=== PATIENT | female | born 1985 | race Caucasian/White ===

== ENCOUNTER → 2016-08-08 19:55 | Outpatient (CLI) | payer OTHER | END | disposition home or self-care (01) | LOC: D.SLEEP 19:55 | DX: G47.33 Obstructive sleep apnea (adult) (pediatric) (principal) ==

== ENCOUNTER 2018-08-25 12:28 | Emergency (ER) | payer OTHER ==
[~2018-08-25] VITALS: Ht 170.2 cm; Wt 63.6 kg
[2018-08-25 12:30] VITALS: Ht 170.2 cm; Wt 63.6 kg
[2018-08-25 12:59] LABS: APPEARANCE CLEAR (CLEAR); BILIRUBIN NEGATIVE (NEGATIVE); COLOR YELLOW (YELLOW); GLUCOSE NEGATIVE (NEGATIVE); KETONE NEGATIVE (NEGATIVE); NITRITE NEGATIVE (NEGATIVE); PROTEIN NEGATIVE (NEGATIVE); UROBILINOGEN NORMAL (NORMAL)
[2018-08-25 13:00] LABS: BACTERIA FEW /hpf (NONE SEEN); EPITHELIAL CELLS 0-5 /hpf (0-5); RED CELLS - URINE 0-5 /hpf (0-5); WHITE CELLS - URINE 0-5 /hpf (0-5)
[2018-08-25] MEDS ORDERED: XOFLUZA40 MG PO (17:54)
[2018-08-25 18:22] VITALS: BP 101/59
== END 2018-08-25 18:22 | disposition home or self-care (01) ==
LOC: D.ER 12:28
PROVIDERS: Emergency Medicine
DX: J11.1 Influenza due to unidentified influenza virus with other respiratory manifestations (principal); E86.0 Dehydration

== ENCOUNTER 2020-02-04 05:40 | Outpatient (CLI) | payer MEDICAID ==
[~2020-02-04] VITALS: Ht 170.2 cm; Wt 85.7 kg
[~2020-02-04 05:40] MED LIST: XOFLUZA40 MG PO
[2020-02-04 05:53] VITALS: BP 143/73; Ht 170.2 cm; Wt 85.7 kg
[2020-02-04 07:28] LABS: BILIRUBIN NEGATIVE (NEGATIVE); KETONE NEGATIVE (NEGATIVE); NITRITE NEGATIVE (NEGATIVE); UROBILINOGEN NORMAL (NORMAL)
[2020-02-04 07:37] LABS: HEMATOCRIT 35.2 % (36.0-48.0); HEMOGLOBIN 11.6 g/dL (12-16); MCH 29.4 pg (26.0-34.0); MCV 89.1 fL (80.0-100.0); MEAN PLATELET VOLUME 12.2 fL (7.4-10.4); RBC 3.95 10x6/uL (4.00-5.40); RDW 14.2 % (11.5-14.5); WBC 12.9 10x3/uL (4.8-10.8)
[2020-02-04 07:41] LABS: UDS - AMPHET NEGATIVE QUAL (NEGATIVE); UDS - BARB NEGATIVE QUAL (NEGATIVE); UDS - BENZO NEGATIVE QUAL (NEGATIVE); UDS - COCAINE NEGATIVE QUAL (NEGATIVE); UDS - OPIATE NEGATIVE QUAL (NEGATIVE); UDS - PCP NEGATIVE QUAL (NEGATIVE); UDS - THC NEGATIVE QUAL (NEGATIVE)
[2020-02-04 20:01] LABS: UDS - AMPHET NEGATIVE QUAL (NEGATIVE); UDS - BARB NEGATIVE QUAL (NEGATIVE); UDS - BENZO NEGATIVE QUAL (NEGATIVE); UDS - COCAINE NEGATIVE QUAL (NEGATIVE); UDS - OPIATE NEGATIVE QUAL (NEGATIVE); UDS - PCP NEGATIVE QUAL (NEGATIVE); UDS - THC NEGATIVE QUAL (NEGATIVE)
[2020-02-05 07:15] LABS: RAPID PLASMA REAGIN Non Reactive (Non Reactive)
== END 2020-02-04 19:37 | disposition home or self-care (01) ==
LOC: UNDOADMIN 05:40 → D.LD 05:40 → D.LDO 05:40 → D.LD 19:37 → EDSTATUS 02-06 09:31
PROVIDERS: ATTEND Obstetrics & Gynecology
DX: O61.0 Failed medical induction of labor (principal); Z3A.00 Weeks of gestation of pregnancy not specified; Z53.9 Procedure and treatment not carried out, unspecified reason

== ENCOUNTER 2020-02-07 09:49 | Outpatient (CLI) | payer MEDICAID ==
[2020-02-04 05:53] VITALS: BMI 29.6
== END 2020-02-07 10:00 | disposition home or self-care (01) ==
LOC: D.LDO 09:49
PROVIDERS: ATTEND Obstetrics & Gynecology
DX: O26.893 Other specified pregnancy related conditions, third trimester (principal); Z3A.39 39 weeks gestation of pregnancy

== ENCOUNTER 2020-02-09 07:23 | Inpatient (IN) | payer MEDICAID ==
[~2020-02-09] VITALS: Ht 170.2 cm; Wt 84.4 kg
[2020-02-09] MEDS ORDERED: PRENAVITE1 TAB PO (08:11)
[2020-02-09] MEDS ORDERED: TUMS X-STR300 MG PO (08:12)
[2020-02-09 08:50] VITALS: BP 123/74; Ht 170.2 cm; Wt 84.4 kg
--- NOTE | 2020-02-09 17:23 | MORECARE ---
CASE MANAGEMENT DISCHARGE SUMMARY PATIENT: BARBRA ELAINE UNIT: [id number] ADM DATE: 02/09/20 AGE: 34 : 83 SEX: F ROOM/BED: D.1275 AUTHOR: ROGERIO HORN PHYSICIAN: REFERRING PHYSICIAN: VERA TORRES MD DATE OF SERVICE: 02/09/20 Discharge Plan Patient Name: BARBRA ELAINE [facility] [facility] 1985 Planned Disposition: Home Anticipated Discharge Date: 02/09/20 Discharge Date: 02/09/2020 Expected LOS: 1 Initial Reviewer: [email or web address] Initial Review Date: 02/09/2020 Generated: 02/09/20 6:23 pm Patient Name: BARBRA ELAINE Page [id number] at 1723 All edits/amendments must be made on the electronic document DICTATION DATE: 02/09/201722 POT SANDER: FANNIE 02/09/201722 RPT#: [id number] DC DATE:02/09/20 STATUS: DIS IN [facility] [address] [place] [address] END OF REPORT
== END 2020-02-09 10:11 | disposition home or self-care (01) | DRG 951 ==
LOC: D.LD 07:23
PROVIDERS: ADMIT Obstetrics & Gynecology; ATTEND Obstetrics & Gynecology
DX: Z34.93 Encounter for supervision of normal pregnancy, unspecified, third trimester (principal); Z3A.39 39 weeks gestation of pregnancy

== ENCOUNTER 2020-02-11 05:52 | Inpatient (IN) | payer MEDICAID ==
[~2020-02-11] VITALS: Ht 170.2 cm; Wt 85.7 kg
[~2020-02-11 05:52] MED LIST changes: +PRENAVITE1 TAB PO; +TUMS X-STR300 MG PO
[2020-02-11 06:26] VITALS: BP 126/72; Ht 170.2 cm; Wt 85.7 kg
[2020-02-11 07:50] LABS: HEMATOCRIT 37.2 % (36.0-48.0); HEMOGLOBIN 12.2 g/dL (12-16); MCH 29.1 pg (26.0-34.0); MCHC 32.8 g/dL (31.0-37.0); MCV 88.8 fL (80.0-100.0); MEAN PLATELET VOLUME 11.5 fL (7.4-10.4); RBC 4.19 10x6/uL (4.00-5.40); RDW 14.3 % (11.5-14.5); WBC 13.4 10x3/uL (4.8-10.8)
[2020-02-11 07:58] LABS: UDS - AMPHET NEGATIVE QUAL (NEGATIVE); UDS - BARB NEGATIVE QUAL (NEGATIVE); UDS - BENZO NEGATIVE QUAL (NEGATIVE); UDS - COCAINE NEGATIVE QUAL (NEGATIVE); UDS - OPIATE NEGATIVE QUAL (NEGATIVE); UDS - PCP NEGATIVE QUAL (NEGATIVE); UDS - THC NEGATIVE QUAL (NEGATIVE)
[2020-02-11 16:00] VITALS: BP 110/74
--- NOTE | 2020-02-11 16:00 | NUR ---
RECEIVED PT FROM PACU FOLLOWING . IV OF LR WITH PITOCIN INFUSING TO MIDLINE IV IN RIGHT UPPER ARM. IV PLACED TO IVP INFUSING AT 125CC/HR. PT GROGGY, BUT AWAKE AND ORIENTED X3. QUACH CATHETER DRAINING LIGHT YELLOW URINE TO GRAVITY. FUNDUS FIRM 2 BELOW THE UMBILICUS. LOCHIA SMALL/RUBRA. MALE VISITOR AT BEDSIDE. NO C/O PAIN AT THIS TIME.
[2020-02-11 16:15] VITALS: BP 146/75
[2020-02-11 16:30] VITALS: BP 130/80
[2020-02-11 16:45] VITALS: BP 144/77
--- NOTE | 2020-02-11 16:55 | NUR ---
VISION IMPAIRED TEACHER SET UP AND INFUSING PER ORDERS. PT INSTRUCTED ON USE. STATES UNDERSTANDING.
[2020-02-11 17:00] VITALS: BP 115/90
--- NOTE | 2020-02-11 17:28 | NUR ---
PT INSTRUCTED ON INCENTIVE SPIROMETER. PT SUCCESSFULLY USED SPIROMETER, RAISING GASKET TO 2000 X3 BREATHS. INSTRUCTED TO USE SPIROMETER 2X PER HOUR FOR 3-5 BREATHS EACH TIME. STATES UNDERSTANDING.
--- NOTE | 2020-02-11 18:05 | NUR ---
SYLVIA CARE DONE. FUNDUS REMAINS FIRM 2 BELOW THE UMBILICUS. FLOW IS SCANT/RUBRA. PT STATES LITTLE RELIEF FROM PAIRING MACHINE OPERATOR AT THIS TIME. ENCOURAGED TO CONTINUE TO USE PAIRING MACHINE OPERATOR OFTEN NEEDED. PT USING INCENTIVE SPIROMETER INSTRUCTED. NO OTHER NEEDS OR CONCERNS VOICED AT THIS TIME. MALE VISITOR REMAINS AT BEDSIDE WITH IN ARMS.
--- NOTE | 2020-02-11 19:15 | NUR ---
REPORT GIVEN BY DEWAYNE
--- NOTE | 2020-02-11 20:30 | NUR ---
PT ASSESSMENT COMPLETED. SKIN IS WARM AND DRY. INCISION DRESSING DRY AND INTACT WITH NO DRAINAGE NOTED. SHE HAS A LOW TRANSVERSE INCISION. LOCHIA IS MEDIUM. FUNDUS IS FIRM. PT HAS A DILAUDID MEDICAL PSYCHOTHERAPIST PUMP. SHE HAS TO BE REMINDED TO PUSH THE GREEN BUTTON. SHE IS DOZING WELL BUT STILL C/O PAIN RATED AN 8. SHE ALSO GETS TORADOL Q6H PRN. HEART SOUNDS NORMAL. LUNGS CLEAR AND BOWEL SOUNDS NOT HEARD AT THIS TIME. PT C/O BEING HUNGRY BUT UNDERSTANDS SHE CANNOT EAT UNTIL THE MORNING. SHE HAS A QUACH CATHETER THAT IS DRAINING YELLOW URINE. SHE HAS AN IV IN HER RIGHT ARM. THE SITE LOOKS GOOD WITH NO REDNESS OR PAIN. SHE HAS AN ICE PACK TO HER INCISION NOW. SHE DOES HER IS WELL. SHE UNDERSTANDS THAT SHE IS TO DO THIS 10X AN HOUR WHEN SHE IS AWAKE.
--- NOTE | 2020-02-11 21:00 | NUR ---
PT ASKED FOR CHICKEN BROTH. THIS WAS DELIVERED TO HER.
--- NOTE | 2020-02-11 21:45 | NUR ---
IV TORADOL GIVEN PER PT REQUEST.
--- NOTE | 2020-02-11 22:41 | NUR ---
PT IS RESTING WITH HER EYES CLOSED. RESPIRATIONS EVEN AND UNLABORED.
[2020-02-12] VITALS: BP 113/68
--- NOTE | 2020-02-12 | NUR ---
PT STATES SHE IS HUNGRY. CHICKEN BROTH AND JELLO SERVED TO HER. SHE HAS NO C/O AT THIS TIME
--- NOTE | 2020-02-12 00:15 | NUR ---
MOM IS LAYING IN BED EATING HER BROTH AND JELLO AND SNUGGLNG WITH THE BABY. I TALKED WITH HER ABOUT NOT FALLING TO SLEEP WITH THE BABY IN BED WITH HER. SHE STATES SHE'LL NEVER DO THAT. EXPLAINED THE THINGS THAT COULD HAPPEN TO THE BABY IF SHE DID THIS. SHE VERBALIZED UNDERSTANDING
--- NOTE | 2020-02-12 02:33 | NUR ---
WENT IN FOR ROUNDS TO CHECK ON THE MOM. SHE IS SLEEPING AND THE BABY IS IN BED WITH HER. I PUT HIM BACK INTO THE CRIB AND HE STARTED SCREAMING. I CHECKED HIS DIAPER AND IT WAS DRY. MOM SAID HE ATE 20 ML ABOUT 0015. THE NURSERY NURSE SAID THAT HE COULD COME TO THE NURSERY TO STAY A WHILE. THE BABY LOBITO IS IN THE ROOM SLEEPING AND HE DID NOT WAKE UP AT ALL WHILE ALL THIS WAS GOING ON. SOON I TOOK THE BABY, THE MOM WAS ASLEEP AGAIN.
[2020-02-12 04:00] VITALS: BP 108/64
--- NOTE | 2020-02-12 05:00 | NUR ---
PT REQUESTED TORADOL. 30 MG IV GIVEN.
--- NOTE | 2020-02-12 05:14 | NUR ---
VS TAKEN. PT IS AWAKE FOR NOW. QUACH EMPTIED AND DOCUMMENTED. IV PUMP CLEARED. DIRTY PADS UNDERNEATH PT WERE CHANGED WELL HER PADS. HER LOCHIA IS SMALL. PT IS RESTING QUIETLY WITH HER EYES CLOSED. BABY HAS BEEN IN THE NURSERY SINCE 13
--- NOTE | 2020-02-12 05:15 | NUR ---
SAMPLE WASHER WENT IN TO GET BLOOD FROM PT PER DR. KAUFMAN. PT WAS STUCK TWICE. SHE AND HER BABY DADDY WERE YELLING AND CUSSING AT THE SAMPLE WASHER AND THE PT WAS CRYING LOUDLY. NURSE WENT IN TO TRY TO DRAW LAB FROM PT MIDLINE IV. THE MIDLINE FLUSHED WELL BUT WOULD NOT DRAW. DR. TORRES WAS NOTIFIED BY CHARGE NURSE, PAUL, AND THE LAB WORK WAS CANCELLED.
--- NOTE | 2020-02-12 05:28 | NUR ---
PT IS HAVING HER BLOOD DRAWN NOW BY [facility].
[2020-02-12 06:11] LABS: RAPID PLASMA REAGIN Non Reactive (Non Reactive)
--- NOTE | 2020-02-12 06:27 | NUR ---
PT AND BABY LOBITO HAVE THE BABY IN THE ROOM FOR THE FIRST TIME SINCE 13. THEY ARE QUIET AND WITHOUT C/O AT THIS TIME.
--- NOTE | 2020-02-12 07:00 | NUR ---
REPORT RECEIVED FROM DOLLY ORTEGA.
--- NOTE | 2020-02-12 07:55 | NUR ---
DR. TORRES HERE FOR ROUNDS. ORDERS RECEIVED.
[2020-02-12 08:15] VITALS: BP 113/69
--- NOTE | 2020-02-12 08:15 | NUR ---
TO ROOM FOR ASSESSMENT. ASSESSMENT COMPLETED AND VS TAKEN. SEE FLOWSHEET. IV OF LR WITH PITOCIN INFUSING VIA IVP AT 125CC/HR WITH ACCOUNTS RECEIVABLE COORDINATOR INFUSING PRN. PT AWAKE, ALERT; FUNDUS FIRM MIDLINE 2 BELOW THE UMBILICUS. INCISION IS CDI WITH JUAN CARLOS. DRESSING REMOVED BY DR. TORRES DURING ROUNDS. QUACH CATHETER DRAINING CONCENTRATED URINE. PT STATES ACCOUNTS RECEIVABLE COORDINATOR AND TORADOL PROVIDING SOME PAIN RELIEF. INFORMED PT QUACH CATHETER WILL BE REMOVED THIS MORNING AND IV WILL BE SALINE LOCKED. PT STATES UNDERSTANDING. NO OTHER NEEDS OR CONCERNS VOICED AT THIS TIME.
--- NOTE | 2020-02-12 08:30 | NUR ---
QUACH CATHETE D/C'D. 425CC EMPTIED FROM BAG. MIDLINE IV SALINE LOCKED. PO PAIN MEDS GIVEN PER PT. REQUEST. PT ASSISTED TO BATHROOM. PT VOIDED 50CC. OFFERED SHOWER. PT STATES SHE WOULD LIKE TO GET BACK IN BED AND REST FOR A WHILE FIRST. PT ASSISTED BACK TO BED. NO OTHER NEEDS VOICED AT THIS TIME. MALE VISITOR AT BEDSIDE.
--- NOTE | 2020-02-12 09:55 | NUR ---
PT REQUESTS TO WALK OFF UNIT. MIDLINE IV D/C'D. CATHETER INTACT. PRESSURE APPLIED TO SITE X 3-4 MINUTES. NO BLEEDING NOTED. PRESSURE DRESSING APPLIED.
--- NOTE | 2020-02-12 10:15 | NUR ---
PT WALKING OFF UNIT.
--- NOTE | 2020-02-12 10:30 | NUR ---
PT RETURNED TO UNIT. NO REPORTED DIZZINESS. AMBULATING WITHOUT DIFFICULTY. PT RETURNED TO ROOM.
[2020-02-12] MEDS ORDERED: HYDROCODON-ACE1 EA10 PO (11:31)
[2020-02-12] MEDS ORDERED: MOTRIN600 MG PO (11:33)
--- NOTE | 2020-02-12 11:40 | NUR ---
PT AMBULATED OFF UNIT TO VENDING MACHINES.
--- NOTE | 2020-02-12 11:50 | NUR ---
PT RETURNED TO UNIT.
--- NOTE | 2020-02-12 12:45 | NUR ---
PT SITTING UP IN BED. LUNCH SERVED. NO NEEDS OR CONCERNS VOICED AT THIS TIME.
--- NOTE | 2020-02-12 13:15 | NUR ---
PT UP AMBULATING OFF UNIT WITH .
[2020-02-12 13:30] VITALS: BP 121/73
--- NOTE | 2020-02-12 13:30 | NUR ---
PT RETURNED TO ROOM. REQUESTS PAIN MEDICATION. MEDS GIVEN. VS TAKEN. PT PASSING SMALL/MEDIUM CLOTS (SMALLER THAN AN EGG) WHEN UP TO VOID. FUNDUS REMAINS FIRM 2 BELOW THE UMBILICUS, MIDLINE. CONTINUE TO MONITOR. PT IN BED. NO OTHER REQUESTS OR NEEDS AT THIS TIME.
--- NOTE | 2020-02-12 15:30 | NUR ---
PT RESTING WITH EYES CLOSED IN BED. AT BEDSIDE. BABY AT BEDSIDE IN OPEN CRIB.
--- NOTE | 2020-02-12 16:30 | NUR ---
DISCUSSED WITH PATIENT DECISION TO REMAIN IN HOSPITAL OR DISCHARGE. PT STATES SHE WOULD LIKE TO THINK ABOUT IT. PT SITTING UP WITH BABY IN ARMS. AT BEDSIDE. NO OTHER NEEDS OR CONCERNS AT THIS TIME.
--- NOTE | 2020-02-12 17:20 | NUR ---
PT HAS DECIDED TO DISHCARGE HOME.
--- NOTE | 2020-02-12 17:58 | NUR ---
REVIEWED DISCHARGE INSTRUCTIONS WITH PATIENT. STATES UNDERSTANDING. PRESCRIPTIONS GIVEN. FOLLOW-UP APPOINTMENT GIVEN FOR 02/18/20 @ 0800. PT DISCHARGED HOME. WILL ROOM IN UNTIL BABY IS DISCHARGED.
== END 2020-02-12 18:10 | disposition home or self-care (01) | DRG 788 ==
LOC: D.WS 05:52 → D.LD 05:52 → D.WS 15:38
PROVIDERS: ADMIT Obstetrics & Gynecology; ATTEND Obstetrics & Gynecology
PROC: 05HB33Z Insertion of Infusion Device into Right Basilic Vein, Percutaneous Approach (ICD-10-PCS; 2020-02-11)
PROC: B54MZZA Ultrasonography of Right Upper Extremity Veins, Guidance (ICD-10-PCS; 2020-02-11)
PROC: 10D00Z1 Extraction of Products of Conception, Low, Open Approach (ICD-10-PCS; principal; 2020-02-11 13:30)
DX: O61.0 Failed medical induction of labor (principal); Z3A.40 40 weeks gestation of pregnancy; Z37.0 Single live birth; O99.334 Smoking (tobacco) complicating childbirth; F17.200 Nicotine dependence, unspecified, uncomplicated